=== PATIENT | female | born 1980 ===

== ENCOUNTER 2022-03-11 08:41 | Day surgery (SDC) | payer OTHER | END 2022-03-11 15:37 | disposition home or self-care (01) | LOC: CIR.AMB 08:41 | PROVIDERS: ATTEND Orthopaedic Surgery | DX: M67.932 Unspecified disorder of synovium and tendon, left forearm (principal); M24.822 Other specific joint derangements of left elbow, not elsewhere classified; Z20.822 Contact with and (suspected) exposure to COVID-19; M77.12 Lateral epicondylitis, left elbow ==